=== PATIENT | male | born 1950 | race Caucasian/White ===

== ENCOUNTER 2018-03-28 15:59 | Observation (INO) ==
[2018-03-28 16:40] LABS: Basophils # 0.1 10*3/uL (0.0-0.2); Basophils % 0.5 % (0.0-0.8); Eosinophils # 0.4 10*3/uL (0.0-0.87); Eosinophils % 3.7 % (0.00-10.9); Hematocrit 43.4 VOL% (42.0-52.0); Hemoglobin 14.6 GM/DL (14.0-18.0); Immature Granulocytes % 0.5 %; Immature Granulocytes Absolute 0.06 #; Lymphocytes % 25.5 % (21.2-54.2); Mean Corpuscular HGB Conc 33.6 GM/DL (32-36); Mean Corpuscular Hemoglobin 29 PG (27-34); Mean Corpuscular Volume 87.1 FL (87-102); Mean Platelet Volume 9.1 FL (9.6-12.0); Monocytes # 0.7 10*3/uL (0.11-0.8); Monocytes % 5.6 % (1.7-12.7); Neutrophils # 7.6 10*3/uL (1.4-7.4); Neutrophils % 64.2 % (38.7-73.9); Platelet Count 213 T/CUMM (130-400); Red Blood Count 4.98 MC/CUMM (3.8-5.5); Red Cell Distribution Width 12.9 % (9.3-17.3); White Blood Count 11.9 T/CUMM (4-12)
[2018-03-28 17:20] LABS: Alanine Aminotransferase 14 U/L (16-61); Albumin 3.8 G/DL (3.4-5.0); Alkaline Phosphatase 72 U/L (45-117); Aspartate Amino Transferase 14 U/L (0-37); Bilirubin,Total < 0.39 MG/DL (0.2-1.0); Blood Urea Nitrogen 22 MG/DL (7-18); Calcium 9.5 MG/DL (8.5-10.1); Glucose 96 MG/DL (74-106); Osmolality,Calculated 281.4 MOS/KG (273-304); Potassium 4.8 MMOL/L (3.5-5.1); Sodium 140 MMOL/L (136-145); Total Protein 7.8 G/DL (6.4-8.3); Troponin I < 0.015 NG/ML (0.00-0.045)
[2018-03-28] MEDS ORDERED: ASPIRIN 325 MG TABLET PO STA (17:24)
[2018-03-28] MEDS ORDERED: NITROGLYCERIN SL 0.4 MG TABLET SL PRN (17:24)
[2018-03-28] MEDS ORDERED: ENOXAPARIN 100 MG/ML SYRINGE SUBCUT STA (17:24)
[2018-03-28] MEDS ORDERED: amLODIPine 5 MG TABLET PO STA (17:26)
[2018-03-28] MEDS ORDERED: ONDANSETRON 4 MG/2 ML VIAL IV PRN (17:28)
[2018-03-28] MEDS ORDERED: MAGNESIUM SULF RIDER 2 GM in PREMIX 1 EACH IV PRN ×2 (17:28→19:18)
[2018-03-28] MEDS ORDERED: ZALEPLON 5 MG CAPSULE PO PRN (17:28)
[2018-03-28] MEDS ORDERED: MAGNESIUM SULF RIDER 4 GM in PREMIX 1 EACH IV PRN (17:28)
[2018-03-28] MEDS ORDERED: ENOXAPARIN 60 MG/0.6 ML SYRINGE ONE (17:46)
[2018-03-28] MEDS ORDERED: TICAGRELOR 90 MG TABLET PO ONE (18:17)
[2018-03-28] MEDS ORDERED: PANTOPRAZOLE 40 MG VIAL IV ONE (18:26)
[2018-03-28] MEDS ORDERED: guaiFENesin/DM ER 600-30 MG TABLET PO PRN (18:46)
[2018-03-28] MEDS ORDERED: MORPHINE 4 MG/1 ML VIAL IV PRN (18:46)
[2018-03-28] MEDS ORDERED: hydrALAZINE 20 MG/1 ML VIAL IV PRN (18:46)
[2018-03-28] MEDS ORDERED: DOCUSATE SODIUM 100 MG CAPSULE PO PRN (18:46)
[2018-03-28] MEDS ORDERED: NICOTINE 21 MG/24 HR PATCH TRANSDERM PRN (18:46)
[2018-03-28] MEDS ORDERED: diphenhydrAMINE CAP 25 MG CAPSULE PO PRN (18:46)
[2018-03-28] MEDS ORDERED: BISACODYL 5 MG TABLET PO PRN (18:46)
[2018-03-28] MEDS ORDERED: POTASSIUM CHLORIDE RIDER 10 MEQ in PREMIX 1 EACH IV PRN (19:18)
[2018-03-28 19:33] LABS: Troponin I < 0.015 NG/ML (0.00-0.045)
[2018-03-28 23:17] LABS: Troponin I 0.016 NG/ML (0.00-0.045)
[2018-03-28] MEDS: TICAGRELOR 90 MG TABLET PO SCH (23:22)
[2018-03-28] MEDS: SODIUM CHLORIDE 0.9% 1,000 ML IV SCH (23:22)
[2018-03-29] MEDS: NITROGLYCERIN 2% OINT 1 INCH/GM PACK TOP SCH ×3 (02:28→14:00)
[2018-03-29 04:46] LABS: Basophils % 0.4 % (0.0-0.8); Eosinophils # 0.5 10*3/uL (0.0-0.87); Eosinophils % 4.8 % (0.00-10.9); Hematocrit 39.5 VOL% (42.0-52.0); Hemoglobin 13.4 GM/DL (14.0-18.0); Immature Granulocytes % 0.3 %; Immature Granulocytes Absolute 0.03 #; Lymphocytes # 2.9 10*3/uL (1.4-4.0); Lymphocytes % 26.8 % (21.2-54.2); Mean Corpuscular HGB Conc 33.9 GM/DL (32-36); Mean Corpuscular Hemoglobin 29 PG (27-34); Mean Corpuscular Volume 85.5 FL (87-102); Mean Platelet Volume 9.4 FL (9.6-12.0); Monocytes # 0.7 10*3/uL (0.11-0.8); Monocytes % 6.2 % (1.7-12.7); Neutrophils # 6.6 10*3/uL (1.4-7.4); Neutrophils % 61.5 % (38.7-73.9); Platelet Count 190 T/CUMM (130-400); Red Blood Count 4.62 MC/CUMM (3.8-5.5); Red Cell Distribution Width 12.9 % (9.3-17.3); White Blood Count 10.7 T/CUMM (4-12)
[2018-03-29 05:06] LABS: Calcium 8.6 MG/DL (8.5-10.1); Osmolality,Calculated 281.4 MOS/KG (273-304); Potassium 3.8 MMOL/L (3.5-5.1); Risk Ratio 9.33; VLDL CHOLESTEROL 49.8 MG/DL
[2018-03-29] MEDS: ACETAMINOPHEN 325 MG TABLET PO PRN ×2 (06:45→21:29)
[2018-03-29] MEDS ORDERED: PANTOPRAZOLE 40 MG TABLET PO SCH (09:00)
[2018-03-29] MEDS ORDERED: diphenhydrAMINE CAP 25 MG CAPSULE PO ONE (09:30)
[2018-03-29] MEDS ORDERED: DIAZEPAM 5 MG TABLET PO ONE ×2 (09:30)
[2018-03-29] MEDS: TICAGRELOR 90 MG TABLET PO SCH ×2 (09:36→21:25)
[2018-03-29] MEDS: ASPIRIN EC 81 MG TABLET PO SCH (09:36)
[2018-03-29] MEDS: SODIUM CHLORIDE 0.9% 1,000 ML IV SCH (09:46)
[2018-03-29] MEDS ORDERED: MIDAZOLAM 2 MG/2 ML VIAL ONE (10:38)
[2018-03-29] MEDS ORDERED: VERAPAMIL 5 MG/2 ML VIAL ONE (10:38)
[2018-03-29] MEDS ORDERED: NITROGLYCERIN DRIP 50 MG/250 ML BOTTLE IV ONE (10:38)
[2018-03-29] MEDS ORDERED: fentaNYL 100 MCG/2 ML VIAL ONE (10:38)
[2018-03-29] MEDS ORDERED: HEPARIN/NACL 0.9% 2 UNITS/ML 1,000 ML IV ONE (10:38)
[2018-03-29] MEDS ORDERED: LIDOCAINE 1% 20 ML VIAL ONE (10:38)
[2018-03-29] MEDS ORDERED: ENOXAPARIN 60 MG/0.6 ML SYRINGE ONE (10:56)
[2018-03-29] MEDS ORDERED: HEPARIN/NACL 0.9% 2 UNITS/ML 500 ML IV ONE (11:28)
[2018-03-29] MEDS ORDERED: hydrALAZINE 20 MG/1 ML VIAL ONE (11:53)
[2018-03-29] MEDS ORDERED: NITROGLYCERIN SL 0.4 MG TABLET SL PRN (12:31)
[2018-03-29] MEDS: PANTOPRAZOLE 40 MG TABLET PO SCH (14:10)
[2018-03-29] MEDS ORDERED: ATORVASTATIN 40 MG TABLET PO SCH (21:00)
[2018-03-30] MEDS: SODIUM CHLORIDE 0.9% 1,000 ML IV SCH (01:12)
[2018-03-30 04:44] LABS: Basophils % 0.4 % (0.0-0.8); Eosinophils # 0.6 10*3/uL (0.0-0.87); Eosinophils % 5.5 % (0.00-10.9); Hemoglobin 13.6 GM/DL (14.0-18.0); Immature Granulocytes % 0.3 %; Immature Granulocytes Absolute 0.03 #; Lymphocytes # 2.3 10*3/uL (1.4-4.0); Lymphocytes % 21.6 % (21.2-54.2); Mean Corpuscular Hemoglobin 29 PG (27-34); Mean Corpuscular Volume 86.2 FL (87-102); Mean Platelet Volume 8.9 FL (9.6-12.0); Monocytes # 0.7 10*3/uL (0.11-0.8); Monocytes % 6.3 % (1.7-12.7); Neutrophils # 6.9 10*3/uL (1.4-7.4); Neutrophils % 65.9 % (38.7-73.9); Platelet Count 190 T/CUMM (130-400); Red Blood Count 4.64 MC/CUMM (3.8-5.5); Red Cell Distribution Width 12.9 % (9.3-17.3); White Blood Count 10.4 T/CUMM (4-12)
[2018-03-30 04:57] LABS: Calcium 8.9 MG/DL (8.5-10.1); Potassium 3.7 MMOL/L (3.5-5.1)
[2018-03-30] MEDS ORDERED: CLOPIDOGREL 300 MG TABLET PO ONE (06:56)
[2018-03-30 08:22] VITALS: BP 150/70
[2018-03-30] MEDS: PANTOPRAZOLE 40 MG TABLET PO SCH (08:32)
[2018-03-30] MEDS: ASPIRIN EC 81 MG TABLET PO SCH (08:32)
[2018-03-31] MEDS ORDERED: CLOPIDOGREL 75 MG TABLET PO SCH (09:00)
== END 2018-03-30 10:45 | disposition home or self-care (01) ==
LOC: N.EDINP 15:59 → N.ED 15:59 → N.EDINP 18:34 → N.TELES 18:43
PROVIDERS: ADMIT Internal Medicine Cardiovascular Disease; ATTEND Internal Medicine Cardiovascular Disease